=== PATIENT | male | born 1950 | race Caucasian/White ===

== ENCOUNTER 2021-06-28 12:31 | Emergency (ER) | payer OTHER ==
[2021-06-28] MEDS ORDERED: Lidocaine 2% with EPINEPHrine 1:200,000 20 ML SDV INJECT ONE (13:32)
[2021-06-28] MEDS ORDERED: Lidocaine 1% with EPINEPHrine 1:100,000 20 ML MDV INJECT ONE (13:35)
--- NOTE | 2021-06-28 14:09 | EDM.PDOC ---
ED HPI GENERAL MEDICAL PROBLEM - General Chief Complaint: Laceration Stated Complaint: [id number] NEEDS STITCEHS IN LEFT ARM Time Seen by Provider: 06/28/21 13:30 Source of Information: Reports: Patient History Limitations: Reports: No Limitations - History of Present Illness INITIAL COMMENTS - FREE TEXT/NARRATIVE: Pt was sitting on an unstable bench in his garage an fell over slicing his L forearm on the garage door track. Denies pain or other injury. Pt would like his wound stitched up. No LOC. No blood thinners. Is up to date on his Tetanus. Denies fever, cough, chills, drugs, etoh. Onset: Today, Sudden Duration: Hour(s): - Related Data Allergies Allergy/AdvReac Type Severity Reaction Status Date / Time No Known Allergies Allergy Verified 06/28/21 13:28 Home Meds: Home Meds . [No Known Home Meds] 06/28/21 [History] Past Medical History HEENT History: Reports: None Cardiovascular History: Reports: None Respiratory History: Reports: None Gastrointestinal History: Reports: None Genitourinary History: Reports: None Neurological History: Reports: None Psychiatric History: Reports: None Endocrine/Metabolic History: Reports: None Hematologic History: Reports: None Immunologic History: Reports: None Oncologic (Cancer) History: Reports: None Dermatologic History: Reports: None - Infectious Disease History Infectious Disease History: Reports: Chicken Pox, Measles - Past Surgical History Head Surgeries/Procedures: Reports: None GI Surgical History: Reports: Appendectomy Other Musculoskeletal Surgeries/Procedures:: knee surgery Social & Family History - Tobacco Use Tobacco Use Status *Q: Never Tobacco User Second Hand Smoke Exposure: No - Caffeine Use Caffeine Use: Reports: Coffee - Recreational Drug Use Recreational Drug Use: No ED ROS GENERAL - Review of Systems Review Of Systems: Comprehensive ROS is negative, except as noted in HPI. ED EXAM, SKIN/RASH Exam: See Below Exam Limited By: No Limitations General Appearance: Alert, WD/WN, No Apparent Distress Respiratory/Chest: No Respiratory Distress, Lungs Clear, Normal Breath Sounds, No Accessory Muscle Use, Chest Non-Tender Cardiovascular: Normal Peripheral Pulses, Regular Rate, Rhythm, No Edema, No Gallop, No JVD, No Murmur, No Rub Peripheral Pulses: 2+: Radial (L), Radial (R) Extremities: Other (6cm suturable lateral running laceration to posterior mid forearm minimal bleeding) Neurological: Alert, Oriented, CN II-XII Intact, Normal Cognition, Normal Gait, Normal Reflexes, No Motor/Sensory Deficits Psychiatric: Normal Affect, Normal Mood Skin: Warm, Intact ED SKIN PROCEDURES - Laceration/Wound Repair Left Upper Posterior Arm Appearance: Subcutaneous Anesthetic Type: Local Local Anesthesia - Lidocaine (Xylocaine): 1% with EPI Local Anesthetic Volume: 4cc Skin Prep: Saline Exploration/Debridement/Repair: Wound Explored Closed with: Sutures Lac/Wound length In cm: 6 Suture Size: 4-0 # of Sutures: 7 Suture Type: Interrupted Course - Vital Signs Last Recorded V/S: Last Vital Signs Temp 96.8 F L 06/28/21 13:21 Pulse 69 06/28/21 13:21 Resp 16 06/28/21 13:21 BP 159/95 H 06/28/21 13:21 Pulse Ox 98 06/28/21 13:21 - Orders/Labs/Meds Meds: Medications Discontinued Medications Generic Name Dose Route Start Last Admin Trade Name Jakub PRN Reason Stop Dose Admin Lidocaine/Epinephrine 20 ml 06/28/21 13:32 Lidocaine 2% With Epinephrine 1:200,000 20 Ml Sdv INJECT 06/28/21 13:33 ONETIME ONE Lidocaine/Epinephrine 20 ml 06/28/21 13:35 06/28/21 13:38 Lidocaine 1% With Epinephrine 1:100,000 20 Ml Mdv INJECT 06/28/21 13:36 20 ml ONETIME ONE Administration Departure - Departure Time of Disposition: 14:11 Disposition: Home, Self-Care 01 Condition: Good Clinical Impression: Arm laceration Qualifiers: Encounter type: initial encounter Laterality: left Qualified Code(s): S41.112A - Laceration without foreign body of left upper arm, initial encounter - Discharge Information *PRESCRIPTION DRUG MONITORING PROGRAM REVIEWED*: Not Applicable *COPY OF PRESCRIPTION DRUG MONITORING REPORT IN PATIENT MARLI: Not Applicable Instructions: Laceration Care, Adult Forms: ED Department Discharge Additional Instructions: Keep wound clean and dry for 24 hours. Use Neosporin on your wound 4 times a day until your stitches are taken out. Leave stictches in 10-14 days. If any new symptoms or concerns develop contact your PCP or return to the ER. Sepsis Event Note (ED) - Evaluation Sepsis Screening Result: No Definite Risk - Focused Exam Vital Signs: Vital Signs Temp Pulse Resp BP Pulse Ox 06/28/21 13:21 96.8 F L 69 16 159/95 H 98
== END 2021-06-28 14:18 | disposition home or self-care (01) ==
LOC: DL.ED 12:31
DX: S41.112A Laceration without foreign body of left upper arm, initial encounter (principal); W18.39XA Other fall on same level, initial encounter; W26.8XXA Contact with other sharp object(s), not elsewhere classified, initial encounter; Y92.59 Other trade areas as the place of occurrence of the external cause
CPT/HCPCS: 12002; 99282-25

== ENCOUNTER 2024-10-03 06:59 | Day surgery (SDC) | payer MEDICARE, OTHER ==
[2024-10-03] MEDS: Dextrose 5%-0.45% NaCl 1,000 ML IV SCH (07:17)
[2024-10-03] MEDS ORDERED: fentaNYL 100 MCG/2 ML SDV IV ONE (07:33)
[2024-10-03] MEDS ORDERED: Midazolam 1 MG/ML 2 ML SDV ONE (07:33)
[2024-10-03] MEDS ORDERED: fentaNYL 100 MCG/2 ML SDV ONE (07:33)
[2024-10-03] MEDS ORDERED: Midazolam 1 MG/ML 2 ML SDV IV ONE (07:33)
[2024-10-03] MEDS: fentaNYL 100 MCG/2 ML SDV IV ONE ×2 (08:20→08:21)
[2024-10-03] MEDS: Midazolam 1 MG/ML 2 ML SDV IV ONE ×4 (08:21→08:28)
== END 2024-10-03 10:08 | disposition home or self-care (01) ==
LOC: DL.ENDO 06:59
PROVIDERS: ATTEND Internal Medicine Gastroenterology
DX: Z12.11 Encounter for screening for malignant neoplasm of colon (principal); R19.5 Other fecal abnormalities; K57.30 Diverticulosis of large intestine without perforation or abscess without bleeding; E78.00 Pure hypercholesterolemia, unspecified
CPT/HCPCS: 45378; J2250; J3010; J7799